=== PATIENT | female | born 1990 | race African-American/Black ===

== ENCOUNTER 2017-09-24 16:00 | Inpatient (IN) | payer MEDICAID ==
[2017-09-24 17:28] LABS: ADD UMIC NO; UR ASCORBIC ACID NEGATIVE (NEGATIVE); UR BILIRUBIN (Dip) NEGATIVE (NEGATIVE); UR BLOOD (Dip) NEGATIVE (NEGATIVE); UR CLARITY CLEAR (CLEAR); UR COLOR YELLOW (YELLOW); UR GLUCOSE (Dip) NEGATIVE (NEGATIVE); UR KETONES (Dip) NEGATIVE (NEGATIVE); UR LEUKOCYTE ESTERASE (Dip) NEGATIVE Leu/ul (NEGATIVE); UR NITRITE (Dip) NEGATIVE (NEGATIVE); UR SPECIFIC GRAVITY (Dip) 1.013 (1.003-1.030); UR TOTAL PROTEIN (Dip) NEGATIVE (NEGATIVE); UR UROBILINOGEN (Dip) 2+ mg/dL (NEGATIVE)
[2017-09-24] MEDS: LACTATED RINGER'S 1,000 ML IV ×2 (17:43→19:07)
[2017-09-24] MEDS ORDERED: MAGNESIUM SULFATE 4 GM/100 ML 100 ML (18:30)
[2017-09-24] MEDS: MAGNESIUM SULFATE 4 GM/100 ML 100 ML IV (18:53)
[2017-09-24] MEDS: BETAMET NA PHOS/AC(6 MG/ML) 5ML INJ IM (19:02)
[2017-09-24] MEDS: MAGNESIUM SULFATE 20 GM/500 ML 500 ML IV (19:27)
[2017-09-24 19:32] LABS: ADD MAN DIFF? NO
[2017-09-24 19:35] LABS: BASOPHILS % 0.3 % (0.0-2.0); EOSINOPHILS # 0.1 10^3/ul (0.0-0.5); EOSINOPHILS % 0.9 % (0.0-7.0); HEMATOCRIT 31.9 % (37.0-47.0); HEMOGLOBIN 10.6 g/dl (12.0-16.0); LYMPHOCYTES # 1.7 10^3/ul (0.8-2.9); LYMPHOCYTES % 12.2 % (15.0-51.0); MEAN CORPUSCULAR HEMOGLOBIN 30.8 pg (29.0-33.0); MEAN CORPUSCULAR HGB CONC 33.2 g/dl (32.0-37.0); MEAN CORPUSCULAR VOLUME 92.7 fl (82.0-101.0); MEAN PLATELET VOLUME 9.6 fl (7.4-10.4); MONOCYTE # 0.9 10^3/ul (0.3-0.9); MONOCYTES % 6.2 % (0.0-11.0); NEUTROPHIL # 11.2 10^3/ul (1.6-7.5); NEUTROPHILS % 79.8 % (39.0-77.0); PLATELET COUNT 240 10^3/UL (140-415); RED BLOOD COUNT 3.44 10^6/ul (4.20-5.40); RED CELL DISTRIBUTION WIDTH 12.3 % (11.5-14.5)
[2017-09-24 19:35] LABS: WHITE BLOOD COUNT 14.1 10^3/ul (4.8-10.8)
[2017-09-24 19:55] LABS: ALANINE AMINOTRANSFERASE 18 IU/L (13-69); ALBUMIN 3.4 g/dl (3.3-4.9); ALBUMIN/GLOBULIN RATIO 1.06; ALKALINE PHOSPHATASE 233 IU/L (42-121); ANION GAP 14 (8-16); ASPARTATE AMINO TRANSFERASE 20 IU/L (15-46); BILIRUBIN,INDIRECT 0.2 mg/dl (0-1.1); BILIRUBIN,TOTAL 0.2 mg/dl (0.2-1.3); BLOOD UREA NITROGEN 9 mg/dl (7-20); CALCIUM 9.1 mg/dl (8.4-10.2); CARBON DIOXIDE 22 mmol/L (21-31); CHLORIDE 106 mmol/L (97-110); CREATININE 0.63 mg/dl (0.44-1.00); GLUCOSE 69 mg/dl (70-220); POTASSIUM 3.7 mmol/L (3.5-5.1); SODIUM 138 mmol/L (135-144); TOTAL PROTEIN 6.6 g/dl (6.1-8.1)
[2017-09-24 20:01] LABS: INR 0.98; PROTIME 13.1 Sec (11.9-14.9)
[2017-09-24 20:02] LABS: PARTIAL THROMBOPLASTIN TIME 28.5 Sec (25.0-35.0)
[2017-09-24 20:25] LABS: HEPATITIS B SURFACE ANTIGEN NEGATIVE (NEGATIVE)
[2017-09-24] MEDS: ACETAMINOPHEN 325 MG TAB PO (20:51)
[2017-09-24] MEDS: TERBUTALINE 1 MG/ML INJ SC (21:29)
[2017-09-24 21:39] LABS: MAGNESIUM 4.8 mg/dl (1.7-2.5)
[2017-09-24] MEDS ORDERED: ALBUTEROL HFA 8 GM INHALER INH (22:00)
[2017-09-24 23:01] LABS: HIV 1&2 ANTIBODY NEGATIVE (NEGATIVE)
[2017-09-25 01:09] LABS: MAGNESIUM 5.9 mg/dl (1.7-2.5)
[2017-09-25] MEDS: MAGNESIUM SULFATE 20 GM/500 ML 500 ML IV ×2 (06:11→19:31)
[2017-09-25] MEDS: ACETAMINOPHEN 325 MG TAB PO (06:53)
[2017-09-25 07:00] LABS: MAGNESIUM 6.4 mg/dl (1.7-2.5)
[2017-09-25] MEDS: PRENATAL VITAMIN PO (09:28)
[2017-09-25] MEDS: LACTATED RINGER'S 1,000 ML IV ×2 (09:28→23:03)
[2017-09-25] MEDS: FERROUS SULFATE (EC) 325 MG TAB PO (09:28)
[2017-09-25 12:41] LABS: MAGNESIUM 6.8 mg/dl (1.7-2.5)
[2017-09-25 14:53] LABS: RAPID PLASMA REAGIN NONREACTIVE (NR)
[2017-09-25 18:25] LABS: MAGNESIUM 5.2 mg/dl (1.7-2.5)
[2017-09-25] MEDS: BETAMET NA PHOS/AC(6 MG/ML) 5ML INJ IM (19:34)
[2017-09-26 01:19] LABS: MAGNESIUM 4.8 mg/dl (1.7-2.5)
[2017-09-26 07:26] LABS: MAGNESIUM 4.7 mg/dl (1.7-2.5)
[2017-09-26] MEDS: PRENATAL VITAMIN PO (09:00)
[2017-09-26] MEDS: FERROUS SULFATE (EC) 325 MG TAB PO (09:01)
[2017-09-26] MEDS: LACTATED RINGER'S 1,000 ML IV ×3 (11:03→20:44)
[2017-09-26] MEDS: AL HYDROX/MG HYDROX/SIMETH 30 ML CUP PO (22:17)
[2017-09-27] MEDS: AL HYDROX/MG HYDROX/SIMETH 30 ML CUP PO (03:50)
[2017-09-27] MEDS: LACTATED RINGER'S 1,000 ML IV ×2 (03:50→10:26)
[2017-09-27] MEDS: ACETAMINOPHEN 325 MG TAB PO (05:27)
[2017-09-27] MEDS: FERROUS SULFATE (EC) 325 MG TAB PO (09:22)
[2017-09-27] MEDS: PRENATAL VITAMIN PO (09:23)
[2017-09-27] MEDS: DOCUSATE SODIUM 100 MG CAP PO (09:27)
== END 2017-09-27 14:45 | disposition home or self-care (01) | DRG 780 ==
LOC: OBT 16:00 → PP1 09-25 21:40 → L-D 16:02 → OBT 18:19 → L-D 18:19
DX: O47.03 False labor before 37 completed weeks of gestation, third trimester (principal); Z3A.34 34 weeks gestation of pregnancy
CPT/HCPCS: 36415; 76815; 76817; 76818; 80053; 81003; 83735; 85025; 85610; 85730; 86592; 86703; 86850; 86900; 86901; 87340; 96360